=== PATIENT | male | born 1985 | race American Indian/Alaskan Native ===

== ENCOUNTER 2017-06-08 22:28 | Emergency (ER) | payer OTHER ==
[2017-06-08 22:41] VITALS: BP 145/84
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
== END 2017-06-09 01:40 | disposition home or self-care (01) ==
LOC: ED 22:28
DX: M54.2 Cervicalgia (principal); R51 Headache
CPT/HCPCS: 70450; 71046; 72125; 99284